=== PATIENT | female | born 1990 | race Caucasian/White ===

== ENCOUNTER 2018-02-06 18:20 | Emergency (ER) | payer BC ==
[2018-02-06] MEDS ORDERED: Benzocaine 20% Topical Spray UD MUCMEM ONE (19:31)
[2018-02-06] MEDS ORDERED: Lidocaine 2% Viscous Solution 15 ML Cup PO ONE (19:31)
--- NOTE | 2018-02-06 19:39 | EDM.PDOC ---
ED HPI GENERAL MEDICAL PROBLEM - General Chief Complaint: ENT Problem Stated Complaint: BOTTOM RIGHT TOOTH PAIN Time Seen by Provider: 02/06/18 19:32 Source of Information: Reports: Patient History Limitations: Reports: No Limitations - History of Present Illness INITIAL COMMENTS - FREE TEXT/NARRATIVE: HISTORY AND PHYSICAL: []27-year-old female presenting with right lower jaw pain and tooth abscess History of Present Illness: []Patient states that her wisdom teeth are coming in and jaw is edematous and painful Review of Systems: As per history of present illness and below otherwise all systems reviewed and negative. Past medical history: As per history of present illness and as reviewed below otherwise noncontributory. Surgical history: As per history of present illness and as reviewed below otherwise noncontributory. Social history: No reported history of drug or alcohol abuse. Family history: As per history of present illness and as reviewed below otherwise noncontributory. Physical exam: Alert and oriented female who looks uncomfortable she is answering questions in full sentences without shortness of breath but having difficulty opening her jaw fully. HEENT: Atraumatic, normocehpalic, pupils reactive, negative for conjunctival pallor or scleral icterus, mucous membranes moist, throat clear, neck supple, nontender, trachea midline. Jaw is swollen and tooth 15 Lungs: Clear to auscultation, breath sounds equal bilaterally, chest non tender. Heart: S1S2, regular, negative for clicks, rubs, or JVD. Neuro: Awake, alert, oriented. Cranial nerves II through XII unremarkable. Cerebellum unremarkable. Motor and sensory unremarkable throughout. Exam nonfocal. Diagnostics: [] Therapeutics: []Dental balls Impression: []Dental abscess possible impacted wisdom tooth Plan: []Discharged to home Dental balls Cephalexin 750 mg twice a day 1 week List of dentists have been given to the patient to follow-up Definitive disposition and diagnosis as appropriate pending reevaluation and review of above. Onset: Gradual Duration: Day(s):, Getting Worse Location: Reports: Face Quality: Reports: Stabbing, Throbbing Severity: Moderate Improves with: Reports: None Worsens with: Reports: None tooth Pain Score (Numeric/FACES): 8 - Related Data Allergies Allergy/AdvReac Type Severity Reaction Status Date / Time citalopram [From Celexa] Allergy Seizure Verified 02/06/18 19:12 Penicillins Allergy Hives Verified 02/06/18 19:12 Home Meds: Home Meds Methylphenidate HCl [Concerta] 0 mg PO DAILY 02/06/18 [History] Prazosin [Minpress] 6 mg PO DAILY 02/06/18 [History] Venlafaxine [Effexor XR] 250 mg PO BEDTIME 02/06/18 [History] Past Medical History HEENT History: Reports: Impaired Vision, Other (See Below) Other HEENT History: wears glasses Psychiatric History: Reports: Anxiety, Depression Social & Family History - Family History Family Medical History: Noncontributory - Tobacco Use Smoking Status *Q: Never Smoker Years of Tobacco use: 7 - Alcohol Use Days Per Week of Alcohol Use: 7 Number of Drinks Per Day: 2 Total Drinks Per Week: 14 - Recreational Drug Use Recreational Drug Use: No ED ROS ENT - Review of Systems Review Of Systems: ROS reveals no pertinent complaints other than HPI. ED EXAM, ENT - Physical Exam Exam: See Below (see dictation) Course - Vital Signs Last Recorded V/S: Last Vital Signs Temp 37.3 C 02/06/18 19:00 Pulse 86 02/06/18 19:00 Resp 18 02/06/18 19:00 BP 124/83 02/06/18 19:00 Pulse Ox 99 02/06/18 19:00 - Orders/Labs/Meds Orders: Active Orders 24 hr Category Date Time Status Benzocaine [Hurricaine One 20%] Med 02/06/18 19:31 Once 2 each [facility] ONETIME ONE Meds: Medications Discontinued Medications Generic Name Dose Route Start Last Admin Trade Name Swapnil PRN Reason Stop Dose Admin Benzocaine 2 each 02/06/18 19:31 Hurricaine One 20% MU[facility]EM 02/06/18 19:32 ONETIME ONE Lidocaine HCl 15 ml 02/06/18 19:31 Xylocaine 2% Viscous PO 02/06/18 19:32 ONETIME ONE Departure - Departure Time of Disposition: 19:37 Disposition: Home, Self-Care 01 Condition: Good Clinical Impression: Dental abscess - Discharge Information Referrals: Lore Del Rosario NP [Primary Care Provider] - Additional Instructions: The following information is given to patients seen in the emergency department who are being discharged to home. This information is to outline your options for follow-up care. We provide all patients seen in our emergency department with a follow-up referral. The need for follow-up, as well as the timing and circumstances, are variable depending upon the specifics of your emergency department visit. If you don't have a primary care physician on staff, we will provide you with a referral. We always advise you to contact your personal physician following an emergency department visit to inform them of the circumstance of the visit and for follow-up with them and/or the need for any referrals to a consulting specialist. The emergency department will also refer you to a specialist when appropriate. This referral assures that you have the opportunity for followup care with a specialist. All of these measure are taken in an effort to provide you with optimal care, which includes your followup. Under all circumstances we always encourage you to contact your private physician who remains a resource for coordinating your care. When calling for followup care, please make the office aware that this follow-up is from your recent emergency room visit. If for any reason you are refused follow-up, please contact the [facility] emergency department at and asked to speak to the emergency department charge nurse. Follow-up with dentist next week Dental balls for pain Cephalexin for antibiotic 2 times daily as one week - My Orders Last 24 Hours: My Active Orders 02/06/18 19:31 Benzocaine [Hurricaine One 20%] 2 each [facility] ONETIME ONE - Assessment/Plan Last 24 Hours: My Active Orders 02/06/18 19:31 Benzocaine [Hurricaine One 20%] 2 each MUCMEM ONETIME ONE
[2018-02-06 20:05] VITALS: BP 125/58
== END 2018-02-06 19:47 | disposition home or self-care (01) ==
LOC: MW.ED 18:20
DX: K04.7 Periapical abscess without sinus (principal); Z88.0 Allergy status to penicillin; Z88.1 Allergy status to other antibiotic agents; Z79.899 Other long term (current) drug therapy
CPT/HCPCS: 99282; A9270